=== PATIENT | female | born 1995 | race Caucasian/White ===

== ENCOUNTER 2017-10-29 20:05 | Emergency (ER) | payer OTHER ==
[~2017-10-29] VITALS: Ht 157.5 cm; Wt 54.0 kg
[2017-10-29 20:17] VITALS: BP 122/75; TEMP 36.6; Ht 157.5 cm; Wt 54.0 kg
[2017-10-29] MEDS ORDERED: PROPARACAINE HCL 0.5% OP SOLN 15 ML BTL OPL STA (21:32)
[2017-10-29 22:41] VITALS: PULSE 101; O2SAT 99
--- NOTE | 2017-10-29 22:52 | EMERGENCY ROOM VISIT NOTE ---
History First contact with patient: 21:07 Chief Complaint: EYE ASSESSMENT Stated Complaint: SOMETHING IN EYE History of Present Illness The patient is a 22 year old female who presents to the Emergency Room with complaints of a feeling that something is stuck in her left eye. The patient reports that she was at work and believes she got some sawdust stuck in her eye. She attempted to rinse out the sawdust but states she still feels a foreign body sensation in the eye. She rates her discomfort a 4/10. She states it is difficult to open her eyes but she denies blurring of her vision. Review of Systems A complete 6 point review of systems was reviewed with the patient with pertinent positives and negatives as per history of present illness. All else were negative. Past Medical/Surgical History Medical Problems: (1) No significant active problems Social History Smoking Status: Never Smoker Alcohol Use: none Housing Status: lives with roommate Occupation Status: [employer] student Physical Exam Vital Signs Date Time Temp Pulse Resp B/P (MAP) Pulse Ox O2 Delivery O2 Flow Rate FiO2 10/29/17 22:41 101 18 99 Room Air 10/29/17 20:17 36.6 107 20 122/75 99 Room Air Right Eye Acuity: 20/25 Left Eye Acuity: cant open long enough to read chart Physical Exam Vital Signs: Reviewed Nurse's notes, vital signs stable. Visual acuity as documented above. GENERAL: This is a 22-year-old female, in no acute distress, but who is uncomfortable from the eye problem. Well-developed well-nourished. EYES: The pupils are equal round and reactive to light and accommodation. EOMs are full and without tenderness. There is discharge of clear tears from the left eye which is injected. There is no foreign body visible under the eyelid even after lid eversion. Funduscopic exam reveals no hemorrhages, papilledema, or other abnormalities. No foreign body was seen embedded in the cornea under slit lamp exam. The cornea was clear and no hyphema was seen. Minimal fluorescein uptake was observed with ultraviolet light significant for a corneal abrasion over the pupil. Medical Decision & Procedures Medications Administered Medications (Trade) Dose Ordered Sig/Yasmeen Route Start Time Stop Time Status Last Admin Dose Admin Ciprofloxacin HCl (Ciprofloxacin 0.3% Op Soln) 2 drops Q4H ONCE OP 10/29/17 23:00 4/21/18 23:01 DC 10/29/17 23:03 2 DROPS Medical Decision Differential diagnosis includes corneal abrasion, corneal ulceration, corneal laceration, foreign body, among others. The patient was evaluated as above. Exam shows minimal uptake consistent with a slight corneal abrasion. Patient will be placed on Ciloxan drops. No foreign body seen on examination. Patient did have significant improvement with the Alcaine drops. She was advised to follow-up with her PCP or ophthalmology for recheck if she does not have significant improvement of her symptoms. She verbalized understanding of my assessment and treatment plan and was discharged home in good condition. Medication Reconcilliation Current Medication List: was personally reviewed by me Blood Pressure Screening Patient's blood pressure: Normal blood pressure Impression Primary Impression: Corneal abrasion, left Departure Information Dispostion Home / Self-Care Condition GOOD Referrals [facility] (PCP) Brandan Baez MD Patient Instructions My [facility] Additional Instructions You have been treated in the Emergency Department today for your Corneal Abrasion. You have been prescribed Ciloxan eye drops. This is an antibiotic which will help to prevent an infection from developing in your affected eye. You should use 2 drops in the affected eye every 2 hours while awake for the first 2 days, then every 4 hours for the remaining 5 days. This is a total of a 7-day course for these antibiotic eye drops. For pain control, you can use the following [id number] medicines (if >12 yo): - Regular strength (325mg/tab) Tylenol (acetaminophen) 2 tabs every 4-6 hours as needed. Do not exceed 12 tablets in a 24 hour period. Avoid taking more than 4 grams (4000 mg) of Tylenol per day. This includes any other sources of acetaminophen you may take on a regular basis. - Regular strength (200 mg/tab) Advil (ibuprofen) 1-2 tabs every 4-6 hours as needed. Do not exceed a dose of 3200 mg per day. You should relax in a quiet, dark place for the rest of the day. You should wear sunglasses while outside for the next few days until your eyes are not as sensitive to the light. Follow-up with your primary care provider or an branch sales and service representative this week if you have persistent irritation of the eye or any blurred vision. Return to the Emergency Department if your current symptoms worsen despite treatment course outlined above, or if you develop any of the following symptoms : intractable pain, visual disturbances, loss of vision, increased redness, swelling, drainage, or if you develop a fever. Problem Qualifiers Primary Impression: Corneal abrasion, left Encounter type: initial encounter Qualified Codes: S05.02XA - Injury of conjunctiva and corneal abrasion without foreign body, left eye, initial encounter
[2017-10-29] MEDS ORDERED: CIPROFLOXACIN HCL 0.3% OP SOLN 2.5 ML BTL OP ONE (23:00)
== END 2017-10-29 23:04 | disposition home or self-care (01) ==
LOC: C.EDB 20:07 → C.EDD 23:04
DX: S05.02XA Injury of conjunctiva and corneal abrasion without foreign body, left eye, initial encounter (principal); X58.XXXA Exposure to other specified factors, initial encounter